=== PATIENT | female | born 1945 | race Caucasian/White ===

== ENCOUNTER 2024-08-21 12:48 | Inpatient (IN) | payer MEDICARE, OTHER ==
[2024-08-21] MEDS ORDERED: VANCOMYCIN IV PER PHARMACY 1 EACH MISC MISCELLANE PRN (12:57)
[2024-08-21 13:00] LABS: Glucose,Whole Blood 200 mg/dL (70-110)
[2024-08-21 13:14] LABS: Basophils # (A) 0.03 10*3/uL (0.00-0.10); Basophils % (A) 0.2 %; Eosinophils # (A) 0.09 10*3/uL (0.04-0.35); Eosinophils % (A) 0.5 %; HCT 31.9 % (37.2-46.3); HGB 10.2 g/dL (12.0-15.0); Lymphocytes # (A) 0.54 10*3/uL (0.90-5.00); Lymphocytes % (A) 3.1 %; MCH 25.5 pg (27.0-32.0); MCV 79.8 fL (80.0-97.0); Mean Platelet Volume 9.9 fL (9.5-12.2); Monocytes # (A) 1.41 10*3/uL (0.20-1.00); Neutrophils # (A) 15.41 10*3/uL (1.80-7.70); Neutrophils % (A) 87.3 %; Platelet Count 186 10*3/uL (140-440); RDW 17.7 % (11.5-14.5); WBC 17.64 10*3/uL (4.50-10.00)
--- NOTE | 2024-08-21 13:21 | ED ---
General Adult HPI - General Chief complaint: Altered Mental Status Stated complaint: AMS Time Seen by Provider: 08/21/24 12:49 Source: patient, EMS, RN notes reviewed, old records reviewed Mode of arrival: EMS Limitations: no limitations - History of Present Illness Initial comments: Patient is a 79-year-old female presents emergency department for altered mental status and increased weakness. She is usually ANO x 4 and takes care of herself and lives on her own. Family found her today still in bed. She seems slightly lethargic. Patient is not confused but is slow to answer questions. States she has been having a cough. Denies any abdominal pain, nausea, vomiting. Does endorse weakness. Denies any diarrhea. Denies any chest pain. Denies any headache. Is moving all 4 extremities. Presents for further evaluation at this time. Denies any falls or head injuries.Patient informs me she does have a history of COPD. - Related Data Home Medications Medication Instructions Recorded Confirmed Abatacept [Orencia Clickject] 125 mg SQ GILMORE 08/21/24 08/21/24 Donepezil [Aricept] 10 mg PO HS 08/21/24 08/21/24 Empagliflozin [Jardiance] 10 mg PO DIRECTED 08/21/24 08/21/24 Enalapril [Vasotec] 2.5 mg PO DAILY 08/21/24 08/21/24 Lacosamide 100 mg PO BID 08/21/24 08/21/24 Levothyroxine Sodium [Synthroid] 100 mcg PO DAILY 08/21/24 08/21/24 Omeprazole 20 mg PO BID 08/21/24 08/21/24 Pravastatin Sodium [Pravachol] 40 mg PO HS 08/21/24 08/21/24 Sertraline [Zoloft] 50 mg PO DAILY 08/21/24 08/21/24 metFORMIN HCL ER [Glucophage XR] 500 mg PO DIRECTED 08/21/24 08/21/24 predniSONE 5 mg PO DAILY 08/21/24 08/21/24 sitaGLIPtin [Januvia] 100 mg PO DAILY 08/21/24 08/21/24 Allergies Allergy/AdvReac Type Severity Reaction Status Date / Time No Known Allergies Allergy Verified 08/21/24 14:07 Review of Systems ROS Statement: Those systems with pertinent positive or pertinent negative responses have been documented in the HPI. Review of Systems: CONST: Endorses fever EYES: Denies blurry vision ENT: Denies nasal congestion C/V: Denies Chest pain RESP: Endorses cough, congestion GI: Denies abdominal pain : Denies dysuria SKIN: Denies rash. MSK: Denies joint pain. NEURO: Endorses general weakness ROS Other: All systems not noted in ROS Statement are negative. Past Medical History Past Medical History: No Reported History Past Surgical History: No Surgical Hx Reported General Exam - General Exam Comments Initial Comments: General: Febrile. HEAD: Normal with no signs of head trauma. EYES: PERRLA, EOMI, conjunctiva normal, no discharge. Pupils are 3 mm and equal bilaterally. ENT: Hearing grossly intact, normal oropharynx. Dry mucous membranes. RESPIRATORY: Coarse breath sounds with wheezing bilaterally. C/V: Tachycardic with regular rhythm. S1 and S2 auscultated, no edema, periphera l pulses 2+ and intact throughout ABD: Abd is soft, nontender, nondistended EXT: Normal range of motion, no obvious deformity SKIN: No rashes or lesions observed on exposed skin. NEURO: Alert and oriented x 4. No focal sensory or strength deficits. GCS 15. Somewhat slow to respond to questions. Has generalized weakness. Limitations: no limitations Course Vital Signs 08/21/24 08/21/24 08/21/24 12:50 15:27 15:36 Temperature 101 F H Pulse Rate 100 96 92 Pulse Rate [ Pulse Oximetery ] Respiratory 17 Rate Blood Pressure 139/55 Blood Pressure [Right Arm] O2 Sat by Pulse 95 Oximetry 08/21/24 08/21/24 08/21/24 15:56 16:06 18:08 Temperature 98.2 F 97.6 F Pulse Rate 98 Pulse Rate [ 102 H Pulse Oximetery ] Respiratory 17 16 Rate Blood Pressure 127/55 Blood Pressure 105/63 [Right Arm] O2 Sat by Pulse 96 96 Oximetry Medical Decision Making - Medical Decision Making Was pt. sent in by a medical professional or institution (STEVE Wong, BABY COUNSELOR, urgent care, hospital, or fdc...) When possible be specific @ -No Did you speak to anyone other than the patient for history (EMS, parent, family, police, friend...)? What history was obtained from this source @ -No Did you review nursing and triage notes (agree or disagree)? Why? @ -I reviewed and agree with nursing and triage notes Were old charts reviewed (outside hosp., previous admission, EMS record, old EKG, old radiological studies, urgent care reports/EKG's, fdc records)? Report findings @ -No old charts were reviewed Differential Diagnosis (chest pain, altered mental status, abdominal pain women, abdominal pain men, vaginal bleeding, weakness, fever, dyspnea, syncope, headache, dizziness, GI bleed, back pain, seizure, CVA, palpatations, mental health, musculoskeletal)? @ -Differential Weakness: Hypoglycemia, shock, sepsis, hyponatremia, anemia, infection, AR, ETOH, adverse medicine reaction, overdose, stroke, this is not meant to be an all-inclusive list. EKG interpreted by me (3pts min.). @ -As above X-rays interpreted by me (1pt min.). @ -Chest x-ray shows bilateral pulmonary infiltrates suggestive of pneumonia. CT interpreted by me (1pt min.). @ -CT brain shows no obvious acute intracranial process. U/S interpreted by me (1pt. min.). @ -None done What testing was considered but not performed or refused? (CT, X-rays, U/S, labs)? Why? @ -None What meds were considered but not given or refused? Why? @ -None Did you discuss the management of the patient with other professionals (professionals i.e. , PA, BABY COUNSELOR, lab, RT, psych nurse, social work case manager, scalp treatment specialist, teacher, chief technical officer, spring encaser)? Give summary @ -Discussed with admitting provider, Dr. Sadler who accepted the admission. Was smoking cessation discussed for >3mins.? @ -No Was critical care preformed (if so, how long)? @ -Yes, 32 minutes Were there social determinants of health that impacted care today? How? (Homelessness, low income, unemployed, alcoholism, drug addiction, transportation, low edu. Level, literacy, decrease access to med. care, long term, rehab)? @ -No Was there de-escalation of care discussed even if they declined (Discuss DNR or withdrawal of care, Hospice)? DNR status @ -No What co-morbidities impacted this encounter? (DM, HTN, Smoking, COPD, CAD, Cancer, CVA, ARF, Chemo, Hep., AIDS, mental health diagnosis, sleep apnea, morbid obesity)? @ -COPD Was patient admitted / discharged? Hospital course, mention meds given and route, prescriptions, significant lab abnormalities, going to OR and other pertinent info. @ -Patient presents febrile, with mild confusion as well as tachycardia. With mental status effects as well as the tachycardia and fever patient does meet criteria for sepsis. Multiple SIRS criteria with mental status changes. Patient will be initiated on 30 cc/kg fluid bolus of lactated Ringer's with maintenance fluids. Blood culture obtained and sent. Broad-spectrum vancomycin and cefepime started. Patient administered acetaminophen for her fever. She also given a dose of steroid and breathing treatment as I do suspect the source to be upper respiratory at this time concerning her breath sounds and cough. She was in agreement this plan. We will obtain workup in addition to CT brain as she is slow to respond to questions.Vital signs otherwise are within acceptable limits other than her fever and tachycardia. EKG shows no signs of acute ischemia.Imaging returned remarkable for pneumonia. CT brain shows no obvious acute process but old remote infarct. Labs remarkable for leukocytosis of 17, mild anemia with a hemoglobin of 10, LYNDON with a BUN of 55 and creatinine of 1.69, normal lactic acid. Urinalysis is still pending at time of admission. Viral swabs are negative. At this time, I updated the patient and family. Vital signs remained within acceptable limits. She will be admitted to the hospital. They were in agreement this plan. Diagnosis is pneumonia, sepsis, LYNDON, weakness. Spoke with the admitting provider, Dr. Sadler of [facility] who accepted the admission. Urinalysis returned after patient was admitted and was remarkable for UTI. Urine culture was sent. Undiagnosed new problem with uncertain prognosis? @ -No Drug Therapy requiring intensive monitoring for toxicity (Heparin, Nitro, Insulin, Cardizem)? @ -No Were any procedures done? @ -No Diagnosis/symptom? @ -Sepsis secondary to pneumonia and uti, weakness, COPD Acute, or Chronic, or Acute on Chronic? @ -Acute Uncomplicated (without systemic symptoms) or Complicated (systemic symptoms)? @ -Complicated Side effects of treatment? @ -None Exacerbation, Progression, or Severe Exacerbation] @ -No Poses a threat to life or bodily function? @ -Yes - Lab Data Result diagrams: 08/21/24 13:01 08/21/24 13:01 Lab Results 0508/21/24 08/21/24 Range/Units 12:55 13:01 13:01 WBC 17.64 H (4.50-10.00) 10*3/uL RBC 4.00 L (4.10-5.20) 10*6/uL Hgb 10.2 L (12.0-15.0) g/dL Hct 31.9 L (37.2-46.3) % MCV 79.8 L (80.0-97.0) fL MCH 25.5 L (27.0-32.0) pg MCHC 32.0 (32.0-37.0) g/dL Plt Count 186 (140-440) 10*3/uL MPV 9.9 (9.5-12.2) fL Immature Gran % (Auto) 0.9 % Neutrophils % 87.3 % Lymphocytes % 3.1 % Monocytes % 8.0 % Eosinophils % 0.5 % Basophils % 0.2 % Immature Gran # 0.16 H (0.00-0.04) 10*3/uL Neutrophils # 15.41 H (1.80-7.70) 10*3/uL Lymphocytes # 0.54 L (0.90-5.00) 10*3/uL Monocytes # 1.41 H (0.20-1.00) 10*3/uL Eosinophils # 0.09 (0.04-0.35) 10*3/uL Basophils # 0.03 (0.00-0.10) 10*3/uL PT 10.9 (10.0-12.5) sec INR 1.0 (<1.2) APTT 23.2 (22.0-30.0) sec Sodium (137-145) mmol/L Potassium (3.5-5.1) mmol/L Chloride (98-107) mmol/L Carbon Dioxide (22-30) mmol/L Anion Gap mmol/L BUN (7-17) mg/dL Creatinine (0.52-1.04) mg/dL Est GFR (CKD-EPI)AfAm (>60 ml/min/1.73 sqM) Est GFR (CKD-EPI)NonAf (>60 ml/min/1.73 sqM) Glucose (74-99) mg/dL POC Glucose (mg/dL) 200 H (70-110) mg/dL POC Glu Internet Sourcer ID Jenny Engel Plasma Lactic Acid Chip (0.7-2.0) mmol/L Calcium (8.4-10.2) mg/dL Magnesium (1.6-2.3) mg/dL Total Bilirubin (0.2-1.3) mg/dL AST (14-36) U/L ALT (4-34) U/L Alkaline Phosphatase (38-126) U/L Ammonia (<30) umol/L Total Protein (6.3-8.2) g/dL Albumin (3.5-5.0) g/dL Influenza Type A (PCR) (Not Detectd) Influenza Type B (PCR) (Not Detectd) RSV (PCR) (Not Detectd) SARS-CoV-2 (PCR) (Not Detectd) 08/21/24 08/21/24 08/21/24 Range/Units 13:01 13:01 13:40 WBC (4.50-10.00) 10*3/uL RBC (4.10-5.20) 10*6/uL Hgb (12.0-15.0) g/dL Hct (37.2-46.3) % MCV (80.0-97.0) fL MCH (27.0-32.0) pg MCHC (32.0-37.0) g/dL Plt Count (140-440) 10*3/uL MPV (9.5-12.2) fL Immature Gran % (Auto) % Neutrophils % % Lymphocytes % % Monocytes % % Eosinophils % % Basophils % % Immature Gran # (0.00-0.04) 10*3/uL Neutrophils # (1.80-7.70) 10*3/uL Lymphocytes # (0.90-5.00) 10*3/uL Monocytes # (0.20-1.00) 10*3/uL Eosinophils # (0.04-0.35) 10*3/uL Basophils # (0.00-0.10) 10*3/uL PT (10.0-12.5) sec INR (<1.2) APTT (22.0-30.0) sec Sodium 132 L (137-145) mmol/L Potassium 4.7 (3.5-5.1) mmol/L Chloride 101 (98-107) mmol/L Carbon Dioxide 19 L (22-30) mmol/L Anion Gap 12 mmol/L BUN 55 H (7-17) mg/dL Creatinine 1.69 H (0.52-1.04) mg/dL Est GFR (CKD-EPI)AfAm 33 (>60 ml/min/1.73 sqM) Est GFR (CKD-EPI)NonAf 29 (>60 ml/min/1.73 sqM) Glucose 199 H (74-99) mg/dL POC Glucose (mg/dL) (70-110) mg/dL POC Glu Internet Sourcer ID Plasma Lactic Acid Chip 1.0 (0.7-2.0) mmol/L Calcium 9.3 (8.4-10.2) mg/dL Magnesium 1.6 (1.6-2.3) mg/dL Total Bilirubin 0.7 (0.2-1.3) mg/dL AST 18 (14-36) U/L ALT 12 (4-34) U/L Alkaline Phosphatase 61 (38-126) U/L Ammonia (<30) umol/L Total Protein 6.7 (6.3-8.2) g/dL Albumin 3.8 (3.5-5.0) g/dL Influenza Type A (PCR) Not Detected (Not Detectd) Influenza Type B (PCR) Not Detected (Not Detectd) RSV (PCR) Not Detected (Not Detectd) SARS-CoV-2 (PCR) Not Detected (Not Detectd) 08/21/24 Range/Units 13:59 WBC (4.50-10.00) 10*3/uL RBC (4.10-5.20) 10*6/uL Hgb (12.0-15.0) g/dL Hct (37.2-46.3) % MCV (80.0-97.0) fL MCH (27.0-32.0) pg MCHC (32.0-37.0) g/dL Plt Count (140-440) 10*3/uL MPV (9.5-12.2) fL Immature Gran % (Auto) % Neutrophils % % Lymphocytes % % Monocytes % % Eosinophils % % Basophils % % Immature Gran # (0.00-0.04) 10*3/uL Neutrophils # (1.80-7.70) 10*3/uL Lymphocytes # (0.90-5.00) 10*3/uL Monocytes # (0.20-1.00) 10*3/uL Eosinophils # (0.04-0.35) 10*3/uL Basophils # (0.00-0.10) 10*3/uL PT (10.0-12.5) sec INR (<1.2) APTT (22.0-30.0) sec Sodium (137-145) mmol/L Potassium (3.5-5.1) mmol/L Chloride (98-107) mmol/L Carbon Dioxide (22-30) mmol/L Anion Gap mmol/L BUN (7-17) mg/dL Creatinine (0.52-1.04) mg/dL Est GFR (CKD-EPI)AfAm (>60 ml/min/1.73 sqM) Est GFR (CKD-EPI)NonAf (>60 ml/min/1.73 sqM) Glucose (74-99) mg/dL POC Glucose (mg/dL) (70-110) mg/dL POC Glu Internet Sourcer ID Plasma Lactic Acid Chip (0.7-2.0) mmol/L Calcium (8.4-10.2) mg/dL Magnesium (1.6-2.3) mg/dL Total Bilirubin (0.2-1.3) mg/dL AST (14-36) U/L ALT (4-34) U/L Alkaline Phosphatase (38-126) U/L Ammonia <9 (<30) umol/L Total Protein (6.3-8.2) g/dL Albumin (3.5-5.0) g/dL Influenza Type A (PCR) (Not Detectd) Influenza Type B (PCR) (Not Detectd) RSV (PCR) (Not Detectd) SARS-CoV-2 (PCR) (Not Detectd) - EKG Data -: EKG Interpreted by Me EKG Comments: 12-lead Electrocardiogram Interpretation Note EKG was reviewed and interpreted by myself. 12-lead ECG performed at 1303 is interpreted by me as revealing sinus tachycardia at a rate of 100 beats per minute. Loiza is normal. AK interval is 132 ms, QRS durations 83 ms, QTc is 364 ms.. There were no ST or T wave abnormalities to suggest myocardial ischemia or injury. R wave progression across the precordium was satisfactory. By my interpretation this EKG is non-diagnostic for acute ischemia. Critical Care Time Critical Care Time: Yes Total Critical Care Time: 32 Disposition Clinical Impression: Sepsis, Pneumonia, LYNDON (acute kidney injury), UTI (urinary tract infection) Disposition: ADMITTED IP TO THIS HOSP Condition: Serious Time of Disposition: 15:10
[2024-08-21 13:26] LABS: Partial Thromboplastin Time 23.2 sec (22.0-30.0); Prothrombin Time 10.9 sec (10.0-12.5)
[2024-08-21] MEDS: LACTATED RINGERS 1,000 ML IV SCH ×2 (13:30→16:20)
[2024-08-21] MEDS: ONDANSETRON 4 MG/2 ML VIAL IVP STA (13:31)
[2024-08-21 13:33] LABS: ALT 12 U/L (4-34); AST 18 U/L (14-36); African American GFR (CKD) 33 (>60 ml/min/1.73 sqM); Albumin 3.8 g/dL (3.5-5.0); Alkaline Phosphatase 61 U/L (38-126); Anion Gap 12 mmol/L; Blood Urea Nitrogen 55 mg/dL (7-17); Calcium 9.3 mg/dL (8.4-10.2); Carbon Dioxide 19 mmol/L (22-30); Chloride 101 mmol/L (98-107); Glucose 199 mg/dL (74-99); Magnesium 1.6 mg/dL (1.6-2.3); Non-African American GFR(CKD) 29 (>60 ml/min/1.73 sqM); Potassium 4.7 mmol/L (3.5-5.1); Sodium 132 mmol/L (137-145); Total Bilirubin 0.7 mg/dL (0.2-1.3); Total Protein 6.7 g/dL (6.3-8.2)
[2024-08-21] MEDS: methylPREDNISolone SOD SUCCI 125 MG/2 ML VIAL IV STA (13:33)
[2024-08-21] MEDS: ACETAMINOPHEN TAB 500 MG TAB PO STA (13:35)
[2024-08-21] MEDS: VANCOMYCIN 1,250 MG in SODIUM CHLORIDE 0.9% 250 ML IVPB STA (14:05)
[2024-08-21] MEDS: CEFEPIME 2 GM in SODIUM CHLORIDE 0.9% 100 ML IVPB STA (14:08)
[2024-08-21 14:22] LABS: Influenza A Not Detected (Not Detectd); Influenza B Not Detected (Not Detectd); RSV Not Detected (Not Detectd)
--- NOTE | 2024-08-21 15:06 | CT ---
EXAMINATION TYPE: CT brain wo con DATE OF EXAM: 08/21/2024 2:49 PM COMPARISON: None. CLINICAL INDICATION: Female, 79 years old with history of weakness, AMS/Weakness TECHNIQUE: Brain: Axial CT images of the brain were obtained with coronal and sagittal reformats created and rev iewed. Contrast used: None. Oral contrast used: None. CT DLP: 1933.4 mGycm, Automated exposure control for dose reduction was used. FINDINGS: Brain: Extra-axial spaces: No abnormal extra-axial fluid collections. Ventricular system: Dilatation in proportion to cerebral atrophy. Cerebral parenchyma: Encephalomalacia of the left frontal lobe from prior injury. Cerebral atrophy. N o acute intraparenchymal hemorrhage or mass effect. The fields-white junction is well differentiated. Scattered hypoattenuating areas are seen within the white matter. Cerebellum: Unremarkable. Mass effect: No evidence of midline shift. Intracranial vasculature: unremarkable Soft tissues: Normal. Calvarium/osseous structures: No depressed skull fracture. Paranasal sinuses and mastoid air cells: Mild scattered paranasal sinus disease. Visualized orbits: Orbital contents are intact. IMPRESSION: 1. No acute intracranial process. 2. Remote left frontal lobe injury. [facility], , 08/21/2024 3:04 PM
--- NOTE | 2024-08-21 15:08 | XR ---
EXAMINATION TYPE: XR chest 2V DATE OF EXAM: 08/21/2024 2:37 PM COMPARISON: None CLINICAL INDICATION: Female, 79 years old with history of Weakness; TECHNIQUE: XR chest 2V Frontal and lateral views of the chest. FINDINGS: Lungs/Pleura: Bibasilar atelectasis. Airspace opacities also present over the spine on lateral view. No evidence for pneumothorax, pleural effusion. Pulmonary vascularity: Unremarkable. Heart/mediastinum: Cardiomediastinal silhouette is unremarkable. Musculoskeletal: No acute osseous pathology. IMPRESSION: Lower lobe airspace opacities correlate for pneumonia versus atelectasis. [facility], , 08/21/2024 3:06 PM
[2024-08-21] MEDS ORDERED: IPRATROPIUM-ALBUTEROL 3 ML NEB INHALATION PRN (15:11)
[2024-08-21] MEDS ORDERED: IBUPROFEN 400 MG TAB PO PRN (15:12)
[2024-08-21] MEDS ORDERED: NALOXONE 0.4 MG/ML 1 ML VIAL IV PRN (15:12)
[2024-08-21] MEDS ORDERED: ONDANSETRON 4 MG/2 ML VIAL IVP PRN (15:12)
[2024-08-21] MEDS: IPRATROPIUM-ALBUTEROL 3 ML NEB INHALATION STA (15:26)
[2024-08-21] MEDS: IPRATROPIUM-ALBUTEROL 3 ML NEB INHALATION SCH (15:27)
[2024-08-21 15:49] LABS: Appearance,Urine Cloudy (Clear); Bacteria,Urine Occasional /hpf; Bilirubin,Urine Negative (Negative); Blood,Urine Moderate (Negative); Color,Urine Light Yellow; Glucose,Urine (UA) 4+ (Negative); Hyaline Casts,Urine 6 /lpf (0-2); Ketones,Urine Negative (Negative); Leukocyte Esterase,Urine Large (Negative); Mucus,Urine Rare /hpf; Nitrite,Urine Positive (Negative); PH, Urine 5.5 (5.0-8.0); Protein,Urine 1+ (Negative); RBC,Urine >182 /hpf (0-5); Specific Gravity,Urine 1.015 (1.001-1.035); Squamous Epithelial Cell,Urine 3 /hpf (0-4); Urobilinogen,Urine <2.0 mg/dL (<2.0); WBC,Urine >182 /hpf (0-5)
--- NOTE | 2024-08-21 16:08 | P.HPIM ---
History of Present Illness H&P Date: 08/21/24 Patient is a 79-year-old female with past medical history of COPD not on home oxygen, hypertension, CVA 2014 presenting with aphasia, no residual deficits, RA, hyperlipidemia, depression, type II DM, who presented to the ER on 08/21/2024 with altered mental status, increasing weakness. History obtained from patient's son. Patient lives on her own, she does not drive since 2016, she does not cook except for very light meals like sandwiches, heating meals. Her sons are doing grocery shopping with her/for her. She became less independent within the past 6 months. Usually ANO x 4. Her son noted that from 3 days ago she became more fatigued, spent more time in the bed. Also became more lethargic. Noted some cough. Patient herself only mentioned that she has been having fatigue but no other symptoms including shortness of breath, chest pain, fevers, chills, nausea, vomiting, dysuria, she states that she usually has 2 or 3 soft bowel movements a day. Per son, patient does not go out, On arrival febrile 101F, tachycardic 100, BP 139/55, [id number] on room air. Lab work revealed leukocytosis 17.6, hemoglobin 10.2, down from 11.4 in May, platelet count normal, coagulation panel normal, sodium low 132, potassium and chloride normal, bicarb 19, creatinine increased 1.69, up from 1.2 in May, blood glucose elevated 199, lactic acid normal, magnesium 1.6, AST and ALT jessica l, ammonia less than 9, Cepheid panel negative, UA significant for glucosuria, pyuria, hematuria, large leukocyte esterase. EKG showed sinus tachycardia, nonspecific ST and T wave abnormalities, QTc 368, no acute ischemia. CT head showed no acute intracranial process remote left frontal lobe injury. Chest x-ray showed lower lobe opacities bilaterally. Patient received cefepime and vancomycin in the ER, admitted for further management of sepsis, secondary to UTI, urine and blood cultures sent, switch to ceftriaxone 2 g daily as well as azithromycin to cover UTI and possible Pertinent positives and negatives as discussed in HPI, a complete review of systems was performed and all other systems are negative. Patient seen and examined at bedside. Vital signs reviewed General: nontoxic, no distress, appears at stated age Derm: warm, dry Head: atraumatic, normocephalic, symmetric Eyes: EOMI, no lid lag, anicteric sclera, pupils equal round reactive to light ENT: Nose and ears atraumatic Neck: No thyromegaly, supple Mouth: no lip lesion, mucus membranes moist Cardiovascular: S1S2 reg, no murmur, no edema Lungs: Bibasilar rhonchi,, no wheezing Abdominal: soft, nontender to palpation, no guarding, no appreciable organomegaly Ext: no gross muscle atrophy, muscle strength muscle strength 5 out of 5 in all 4 extremities, no contractures Neuro: CN II-XII grossly intact Psych: Alert, oriented, appropriate affect Assessment/Plan: Sepsis without septic shock, secondary to UTI and possible Acute toxic metabolic encephalopathy secondary to above - Will switch to ceftriaxone 2 g every 24 hours -Continue with LR at 130 cc/h -Follow-up on urine and blood cultures - Check TSH, vitamin B12, B9, vitamin D3 - PT OT Prerenal LYNDON Hyponatremia -Corrected sodium 134 -Received fluid boluses per sepsis protocol -Continue with LR at 130 cc/h -Strict I's and O's, kidney -Hold home enalapril 2.5 mg p.o. daily Type II DM not on insulin -Hold home Jardiance 10 mg, metformin 500 daily, sitagliptin 100 mg daily -Continue with SSI, Accu-Cheks, hypoglycemia precautions Hypothyroidism: Continue home levothyroxine 100 mg p.o. daily Hyperlipidemia Hypertension Depression RA - Hold home enalapril 2.5 mg p.o. daily, continue sertraline 50 mg p.o. daily, donepezil 10 mg p.o. daily, -Continue home prednisone 5 mg daily The patient is admitted with an anticipated greater than 2 midnight stay as inpatient status for evaluation of sepsis. CODE STATUS: DNR/DNI DVT prophylaxis: Heparin Anticipated discharge date: TBD Anticipated discharge place: [facility] A total of40] minutes was spent on the care of this complex patient more than 50% of the time was spent in counseling and care coordination. Past Medical History Past Medical History: No Reported History Past Surgical History: No Surgical Hx Reported Medications and Allergies Home Medications Medication Instructions Recorded Confirmed Type Abatacept [Orencia Clickject] 125 mg SQ GILMORE 08/21/24 08/21/24 History Donepezil [Aricept] 10 mg PO HS 08/21/24 08/21/24 History Empagliflozin [Jardiance] 10 mg PO DIRECTED 08/21/24 08/21/24 History Enalapril [Vasotec] 2.5 mg PO DAILY 08/21/24 08/21/24 History Lacosamide 100 mg PO BID 08/21/24 08/21/24 History Levothyroxine Sodium [Synthroid] 100 mcg PO DAILY 08/21/24 08/21/24 History Omeprazole 20 mg PO BID 08/21/24 08/21/24 History Pravastatin Sodium [Pravachol] 40 mg PO HS 08/21/24 08/21/24 History Sertraline [Zoloft] 50 mg PO DAILY 08/21/24 08/21/24 History metFORMIN HCL ER [Glucophage XR] 500 mg PO DIRECTED 08/21/24 08/21/24 History predniSONE 5 mg PO DAILY 08/21/24 08/21/24 History sitaGLIPtin [Januvia] 100 mg PO DAILY 08/21/24 08/21/24 History Allergies Allergy/AdvReac Type Severity Reaction Status Date / Time No Known Allergies Allergy Verified 08/21/24 14:07 Physical Exam Vitals: Vital Signs Temp Pulse Resp BP Pulse Ox 08/21/24 15:27 96 08/21/24 12:50 101 F H 100 17 139/55 95 Intake and Output 08/21/24 08/21/24 08/21/24 06:59 14:59 22:59 Other: Weight 70.6 kg Results CBC & Chem 7: 08/21/24 13:01 08/21/24 13:01 Labs: Abnormal Lab Results - Last 24 Hours (Table) 08/21/24 08/21/24 08/21/24 Range/Units 12:55 13:01 13:01 WBC 17.64 H (4.50-10.00) 10*3/uL RBC 4.00 L (4.10-5.20) 10*6/uL Hgb 10.2 L (12.0-15.0) g/dL Hct 31.9 L (37.2-46.3) % MCV 79.8 L (80.0-97.0) fL MCH 25.5 L (27.0-32.0) pg Immature Gran # 0.16 H (0.00-0.04) 10*3/uL Neutrophils # 15.41 H (1.80-7.70) 10*3/uL Lymphocytes # 0.54 L (0.90-5.00) 10*3/uL Monocytes # 1.41 H (0.20-1.00) 10*3/uL Sodium 132 L (137-145) mmol/L Carbon Dioxide 19 L (22-30) mmol/L BUN 55 H (7-17) mg/dL Creatinine 1.69 H (0.52-1.04) mg/dL Glucose 199 H (74-99) mg/dL POC Glucose (mg/dL) 200 H (70-110) mg/dL
[2024-08-21] MEDS: AZITHROMYCIN 500 MG in SODIUM CHLORIDE 0.9% 250 ML IVPB SCH (16:20)
--- NOTE | 2024-08-21 18:10 | US ---
EXAMINATION TYPE: US kidneys/renal and bladder DATE OF EXAM: 08/21/2024 COMPARISON: NONE CLINICAL INDICATION: Female, 79 years old with history of LYNDON; HX uti. Abnormal labs TECHNIQUE: Grayscale imaging of the bilateral kidneys and urinary bladder: FINDINGS: EXAM MEASUREMENTS: Right Kidney: 10.5 x 4.5 x 4.7 cm Left Kidney: 10.5 x 4.3 x 4.9 cm Right Kidney: No hydronephrosis or masses seen Left Kidney: No hydronephrosis or masses seen Bladder: anechoic, limited visualized due to patient voiding before exam, incompletely distended Bilateral Jets not seen There is no evidence for hydronephrosis at this point in time. No nephrolithiasis is seen. No mikhail s are identified. The urinary bladder is anechoic. IMPRESSION: 1. No evidence for obstructive uropathy. No renal calculi definitively visualized. 2. Incompletely distended urinary bladder [facility], , 08/21/2024 6:08 PM
[2024-08-21] MEDS: PRAVASTATIN SODIUM 40 MG TAB PO SCH (20:29)
[2024-08-21] MEDS: HEPARIN SODIUM,PORCINE 5,000 UNIT/ML 1 ML VIAL SQ SCH (20:29)
[2024-08-21] MEDS: DONEPEZIL 10 MG TAB PO SCH (20:30)
[2024-08-21] MEDS: LACOSAMIDE 50 MG TABLET PO SCH (20:30)
[2024-08-21] MEDS ORDERED: methylPREDNISolone SOD SUCCI 40 MG/ML 1 ML VIAL IV SCH (21:00)
[2024-08-21] MEDS ORDERED: CEFEPIME 2 GM in SODIUM CHLORIDE 0.9% 100 ML IVPB SCH (21:00)
[2024-08-22] MEDS: LEVOTHYROXINE 100 MCG TAB PO SCH (06:46)
[2024-08-22] MEDS: PANTOPRAZOLE 40 MG TABLET PO SCH (06:46)
[2024-08-22 07:41] LABS: ALT 15 U/L (4-34); AST 17 U/L (14-36); African American GFR (CKD) 63 (>60 ml/min/1.73 sqM); Albumin 3.4 g/dL (3.5-5.0); Albumin/Globulin Ratio 1.2; Alkaline Phosphatase 58 U/L (38-126); Anion Gap 12 mmol/L; Blood Urea Nitrogen 40 mg/dL (7-17); Calcium 9.6 mg/dL (8.4-10.2); Carbon Dioxide 20 mmol/L (22-30); Chloride 106 mmol/L (98-107); Globulin 2.8 g/dL; Glucose 203 mg/dL (74-99); Non-African American GFR(CKD) 54 (>60 ml/min/1.73 sqM); Potassium 4.3 mmol/L (3.5-5.1); Sodium 138 mmol/L (137-145); Total Bilirubin 0.4 mg/dL (0.2-1.3); Total Protein 6.2 g/dL (6.3-8.2)
[2024-08-22] MEDS ORDERED: ENOXAPARIN 30 MG/0.3 ML SYRINGE SQ SCH (09:00)
[2024-08-22] MEDS: predniSONE 5 MG TAB PO SCH (09:11)
[2024-08-22] MEDS ORDERED: DEXTROSE 50% SYRINGE 50 ML IVP PRN ×2 (11:09)
--- NOTE | 2024-08-22 11:12 | P.PN ---
Subjective Progress Note Date: 08/22/24 Hospital Course: Patient is a 79-year-old female with past medical history of COPD not on home oxygen, hypertension, CVA 2014 presenting with aphasia, no residual deficits, RA, hyperlipidemia, depression, type II DM, who presented to the ER on 08/21/2024 with altered mental status, increasing weakness. History obtained from patient's son. Patient lives on her own, she does not drive since 2016, she does not cook except for very light meals like sandwiches, heating meals. Her sons are doing grocery shopping with her/for her. She became less independent within the past 6 months. Usually ANO x 4. Her son noted that from 3 days ago she became more fatigued, spent more time in the bed. Also became more lethargic. Noted some cough. Patient herself only mentioned that she has been having fatigue but no other symptoms including shortness of breath, chest pain, fevers, chills, nausea, vomiting, dysuria, she states that she usually has 2 or 3 soft bowel movements a day. Per son, patient does not go out, ordered vitamin D3 check On arrival febrile 101F, tachycardic 100, BP 139/55, [id number] on room air. Lab work revealed leukocytosis 17.6, hemoglobin 10.2, down from 11.4 in May, p latelet count normal, coagulation panel normal, sodium low 132, potassium and chloride normal, bicarb 19, creatinine increased 1.69, up from 1.2 in May, blood glucose elevated 199, lactic acid normal, magnesium 1.6, AST and ALT normal, ammonia less than 9, Cepheid panel negative, UA significant for glucosuria, pyuria, hematuria, large leukocyte esterase. EKG showed sinus tachycardia, nonspecific ST and T wave abnormalities, QTc 368, no acute ischemia. CT head showed no acute intracranial process remote left frontal lobe injury. Chest x-ray showed lower lobe opacities bilaterally. Patient received cefepime and vancomycin in the ER, admitted for further management of sepsis, secondary to UTI, urine and blood cultures sent, switch to ceftriaxone 2 g daily as well as azithromycin to cover UTI and possible CAP 08/22: Seen and examined at bedside, she was sitting at the edge of the bed, eat ing her breakfast, she feels significantly better today, continues to have cough, otherwise no complaints. She has been afebrile with stable blood pressure. Blood cultures growing E. coli. CBC pending, BMP with normalized sodium, creatinine, will continue with IV fluids at decreased rate of 50 cc/h for 1 more day. Pertinent positives and negatives as discussed above, a complete review of sys tems was performed and all other systems are negative. Vitals Signs Reviewed. General: [nontoxic], [no distress], [appears at stated age] Derm: [warm], [dry] Head: [atraumatic], [normocephalic], [symmetric] Eyes: [EOMI], [no lid lag], [anicteric sclera] Mouth: [no lip lesion], [mucus membranes moist] Cardiovascular: [S1S2 reg], [no murmur] Lungs: [CTA bilateral], mild bibasilar rhonchi more on the right] , [no accessory muscle use] Abdominal: [soft], [ nontender to palpation], [no guarding], [no appreciable organomegaly] Ext: [no gross muscle atrophy], [no edema], [no contractures] Neuro: [ CN II-XI grossly intact], [no focal neuro deficits] Psych: [Alert], [oriented], [appropriate affect] Assessment and Plan:Sepsis without septic shock, secondary to UTI and possible Acute toxic metabolic encephalopathy secondary to above - Will switch to ceftriaxone 2 g every 24 hours -Continue with LR at 130 cc/h -Follow-up on urine and blood cultures - Check TSH, vitamin B12, B9, vitamin D3-all pending this morning - PT OT Prerenal LYNDON, resolved Hyponatremia resolved -Received fluid boluses per sepsis protocol -Continue with LR at decreased rate of 50 cc/h -Strict I's and O's, kidney -Hold home enalapril 2.5 mg p.o. daily Type II DM not on insulin -Hold home Jardiance 10 mg, metformin 500 daily, sitagliptin 100 mg daily -Continue with SSI, Accu-Cheks, hypoglycemia precautions Hypothyroidism: Continue home levothyroxine 100 mg p.o. daily Hyperlipidemia Hypertension Depression RA - Hold home enalapril 2.5 mg p.o. daily, continue sertraline 50 mg p.o. daily, donepezil 10 mg p.o. daily, -Continue home prednisone 5 mg daily CODE STATUS: DNR/DNI DVT prophylaxis: Heparin Anticipated discharge date: TBD Anticipated discharge place: TBD Objective - Vital Signs Vital signs: Vital Signs Temp 97.4 F L 08/22/24 07:43 Pulse 80 08/22/24 08:57 Resp 17 08/22/24 07:43 BP 147/83 08/22/24 07:43 Pulse Ox 96 08/22/24 08:49 FiO2 Intake & Output 08/21/24 08/22/24 08/22/24 18:59 06:59 18:59 Output Total 800 Balance -800 Weight 70.6 kg Output: Urine 800 Other: Voiding Method Toilet # Voids 1 1 1 - Labs CBC & Chem 7: 08/21/24 13:01 08/22/24 07:03 Labs: Abnormal Lab Results - Last 24 Hours (Table) 08/21/24 08/21/24 08/21/24 Range/Units 12:55 13:01 13:01 WBC 17.64 H (4.50-10.00) 10*3/uL RBC 4.00 L (4.10-5.20) 10*6/uL Hgb 10.2 L (12.0-15.0) g/dL Hct 31.9 L (37.2-46.3) % MCV 79.8 L (80.0-97.0) fL MCH 25.5 L (27.0-32.0) pg Immature Gran # 0.16 H (0.00-0.04) 10*3/uL Neutrophils # 15.41 H (1.80-7.70) 10*3/uL Lymphocytes # 0.54 L (0.90-5.00) 10*3/uL Monocytes # 1.41 H (0.20-1.00) 10*3/uL Sodium 132 L (137-145) mmol/L Carbon Dioxide 19 L (22-30) mmol/L BUN 55 H (7-17) mg/dL Creatinine 1.69 H (0.52-1.04) mg/dL Glucose 199 H (74-99) mg/dL POC Glucose (mg/dL) 200 H (70-110) mg/dL Total Protein (6.3-8.2) g/dL Albumin (3.5-5.0) g/dL Urine Appearance (Clear) Urine Protein (Negative) Urine Glucose (UA) (Negative) Urine Blood (Negative) Urine Nitrite (Negative) Ur Leukocyte Esterase (Negative) Urine RBC (0-5) /hpf Urine WBC (0-5) /hpf Urine WBC Clumps (None) /hpf Urine Bacteria (None) /hpf Hyaline Casts (0-2) /lpf Urine Mucus (None) /hpf 08/21/24 08/22/24 Range/Units 15:30 07:03 WBC (4.50-10.00) 10*3/uL RBC (4.10-5.20) 10*6/uL Hgb (12.0-15.0) g/dL Hct (37.2-46.3) % MCV (80.0-97.0) fL MCH (27.0-32.0) pg Immature Gran # (0.00-0.04) 10*3/uL Neutrophils # (1.80-7.70) 10*3/uL Lymphocytes # (0.90-5.00) 10*3/uL Monocytes # (0.20-1.00) 10*3/uL Sodium (137-145) mmol/L Carbon Dioxide 20 L (22-30) mmol/L BUN 40 H (7-17) mg/dL Creatinine (0.52-1.04) mg/dL Glucose 203 H (74-99) mg/dL POC Glucose (mg/dL) (70-110) mg/dL Total Protein 6.2 L (6.3-8.2) g/dL Albumin 3.4 L (3.5-5.0) g/dL Urine Appearance Cloudy H (Clear) Urine Protein 1+ H (Negative) Urine Glucose (UA) 4+ H (Negative) Urine Blood Moderate H (Negative) Urine Nitrite Positive H (Negative) Ur Leukocyte Esterase Large H (Negative) Urine RBC >182 H (0-5) /hpf Urine WBC >182 H (0-5) /hpf Urine WBC Clumps Occasional H (None) /hpf Urine Bacteria Occasional H (None) /hpf Hyaline Casts 6 H (0-2) /lpf Urine Mucus Rare H (None) /hpf Microbiology - Last 24 Hours (Table) 08/21/24 13:59 Blood Culture Gram Stain - Preliminary Blood Blood Culture - Preliminary Molecular ID
[2024-08-22] MEDS ORDERED: VANCOMYCIN 1,250 MG in SODIUM CHLORIDE 0.9% 250 ML IVPB ONE (12:00)
[2024-08-22] MEDS: INSULIN LISPRO (HumaLOG) 100 UNIT/ML 10 mL VL SQ SCH (14:02)
[2024-08-22 15:57] LABS: Glucose,Whole Blood 282 mg/dL (70-110)
[2024-08-22 16:04] LABS: Basophils # (A) 0.03 X 10*3/uL (0.00-0.10); Basophils % (A) 0.2 %; Eosinophils # (A) 0 X 10*3/uL (0.04-0.35); Eosinophils % (A) 0 %; HCT 30.7 % (37.2-46.3); HGB 9.1 g/dL (12.0-15.0); Lymphocytes # (A) 0.39 X 10*3/uL (0.90-5.00); Lymphocytes % (A) 2.6 %; MCH 24.5 pg (27.0-32.0); MCHC 29.6 g/dL (32.0-37.0); MCV 82.7 FL (80.0-97.0); Mean Platelet Volume 10.8 FL (9.5-12.2); Monocytes # (A) 0.79 X 10*3/uL (0.20-1.00); Monocytes % (A) 5.3 %; NRBC Per 100 WBC 0 X 10*3/uL (0.00-0.01); Neutrophils # (A) 13.56 X 10*3/uL (1.80-7.70); Neutrophils % (A) 91.2 %; Platelet Count 191 X 10*3/uL (140-440); RBC 3.71 X 10*6/uL (4.10-5.20); RDW 17.7 % (11.5-14.5); WBC 14.87 X 10*3/uL (4.50-10.00)
[2024-08-22 20:22] LABS: Glucose,Whole Blood 217 mg/dL (70-110)
[2024-08-23] MEDS: MELATONIN 5 MG TABLET PO PRN (02:26)
[2024-08-23 03:57] LABS: Basophils # (A) 0.02 10*3/uL (0.00-0.10); Basophils % (A) 0.2 %; Eosinophils # (A) 0.13 10*3/uL (0.04-0.35); Eosinophils % (A) 1.4 %; HCT 28.9 % (37.2-46.3); HGB 9.3 g/dL (12.0-15.0); Lymphocytes # (A) 0.59 10*3/uL (0.90-5.00); Lymphocytes % (A) 6.4 %; MCH 25.6 pg (27.0-32.0); MCHC 32.2 g/dL (32.0-37.0); MCV 79.6 fL (80.0-97.0); Mean Platelet Volume 10.5 fL (9.5-12.2); Monocytes # (A) 0.72 10*3/uL (0.20-1.00); Monocytes % (A) 7.8 %; Neutrophils # (A) 7.69 10*3/uL (1.80-7.70); Neutrophils % (A) 83.3 %; Platelet Count 135 10*3/uL (140-440); RBC 3.63 10*6/uL (4.10-5.20); RDW 17.7 % (11.5-14.5); WBC 9.23 10*3/uL (4.50-10.00)
[2024-08-23 04:05] LABS: African American GFR (CKD) 69 (>60 ml/min/1.73 sqM); Anion Gap 3 mmol/L; Blood Urea Nitrogen 39 mg/dL (7-17); Calcium 9.2 mg/dL (8.4-10.2); Carbon Dioxide 22 mmol/L (22-30); Chloride 103 mmol/L (98-107); Glucose 118 mg/dL (74-99); Non-African American GFR(CKD) 60 (>60 ml/min/1.73 sqM); Potassium 4.2 mmol/L (3.5-5.1); Sodium 128 mmol/L (137-145)
[2024-08-23 06:12] LABS: Glucose,Whole Blood 145 mg/dL (70-110)
[2024-08-23] MEDS: IPRATROPIUM-ALBUTEROL 3 ML NEB INHALATION SCH (08:58)
[2024-08-23] MEDS: ACETAMINOPHEN TAB 325 MG TAB PO PRN (09:14)
[2024-08-23 11:09] LABS: Glucose,Whole Blood 277 mg/dL (70-110)
--- NOTE | 2024-08-23 16:46 | P.PN ---
Subjective Progress Note Date: 08/23/24 Patient was seen and examined. Feeling better. Son at bedside. CBC and BMP significant for RBC 3.63, Hg 9.3, Hct 28.9, MCV 79.6, Plt 135, Na 128, BUN 39, glu 118. BP 167/77, HR 102, Tmax 100F, RR 17, 97% on RA. General: no distress, appears at stated age Derm: warm, dry Head: atraumatic, normocephalic, symmetric Mouth: no lip lesion, mucus membranes moist Cardiovascular: S1 S2 tachy. No murmur. Lungs: Decreased BS bilaterally, no accessory muscle use Ext: no gross muscle atrophy, no edema, no contractures. Neuro: No focal neurologic deficits. Psych: Alert and oriented. Based on my assessment of this patient, this patient meets a high complexity level of care. Acute metabolic encephalopathy due to E. coli bacteremia from UTI: Rocephin 2g IV QD. Tylenol 650 mg PO Q6H PRN fever. Follow final BCx and sensitivities. Hyponatremia with LYNDON: Renal US no obstruction. Start NS at 75 cc/hr. DM with hyperglycemia: Hold home Jardiance, metformin, sitagliptin. Continue with SSI and Accu-Cheks ACHS along with hypoglycemia precautions. Microcytic anemia: Obtain iron studies. Transfuse if Hg< 7. Recommend outpatient C-scope. Hypothyroidism: Continue Synthroid 100 mcg PO QD. Hyperlipidemia: Pravastatin 40 mg PO QD. Hypertension: Start Amlodipine 10 mg PO QD. Depression: Sertraline 50 mg PO QD. Dementia: Aricept 10 mg PO QHS. RA: Prednisone 5 mg PO QD. CODE STATUS: FULL CODE DVT Prophylaxis: Heparin SQ GI Prophylaxis: Designated medical POA if patient is not able to make medical decisions for themselves: Son I have reviewed the following speech correction consultant notes: I have reviewed the results of the following tests: CBC, BMP. I have ordered the following tests: Iron studies. CBC and BMP in the AM. I have discussed the care of this patient with the following independent historian: Son. I have independently interpreted the following test below: I have discussed the management of this patient with the following physician: Objective - Vital Signs Vital signs: Vital Signs Temp 98.0 F 08/23/24 14:00 Pulse 102 H 08/23/24 14:00 Resp 17 08/23/24 14:00 BP 167/77 08/23/24 14:00 Pulse Ox 97 08/23/24 14:00 FiO2 Intake & Output 08/22/24 08/23/24 08/23/24 18:59 06:59 18:59 Other: Voiding Method Toilet Toilet # Voids 1 8 - Labs CBC & Chem 7: 08/23/24 03:20 08/23/24 03:20 Labs: Abnormal Lab Results - Last 24 Hours (Table) 08/22/24 08/22/24 08/23/24 Range/Units 07:03 20:21 03:20 RBC 3.63 L (4.10-5.20) 10*6/uL Hgb 9.3 L (12.0-15.0) g/dL Hct 28.9 L (37.2-46.3) % MCV 79.6 L (80.0-97.0) fL MCH 25.6 L (27.0-32.0) pg RDW 17.7 H (11.5-14.5) % Plt Count 135 L (140-440) 10*3/uL Immature Gran # 0.08 H (0.00-0.04) 10*3/uL Lymphocytes # 0.59 L (0.90-5.00) 10*3/uL Sodium (137-145) mmol/L BUN (7-17) mg/dL Glucose (74-99) mg/dL POC Glucose (mg/dL) 217 H (70-110) mg/dL Vitamin D 25-Hydroxy 28.8 L (30.0-100.0) ng/mL TSH 0.192 L (0.350-5.500) UIU/ML 08/23/24 08/23/24 08/23/24 Range/Units 03:20 06:10 11:07 RBC (4.10-5.20) 10*6/uL Hgb (12.0-15.0) g/dL Hct (37.2-46.3) % MCV (80.0-97.0) fL MCH (27.0-32.0) pg RDW (11.5-14.5) % Plt Count (140-440) 10*3/uL Immature Gran # (0.00-0.04) 10*3/uL Lymphocytes # (0.90-5.00) 10*3/uL Sodium 128 L (137-145) mmol/L BUN 39 H (7-17) mg/dL Glucose 118 H (74-99) mg/dL POC Glucose (mg/dL) 145 H 277 H (70-110) mg/dL Vitamin D 25-Hydroxy (30.0-100.0) ng/mL TSH (0.350-5.500) UIU/ML Microbiology - Last 24 Hours (Table) 08/21/24 13:59 Blood Culture Gram Stain - Preliminary Blood Blood Culture - Preliminary Escherichia coli Molecular ID 08/21/24 15:30 Urine Culture - Final Urine,Voided
[2024-08-23 17:11] LABS: Glucose,Whole Blood 160 mg/dL (70-110)
[2024-08-23] MEDS: amLODIPine 10 MG TAB PO SCH (18:11)
[2024-08-23] MEDS: SODIUM CHLORIDE 0.9% 1,000 ML IV SCH (18:12)
[2024-08-23 20:56] LABS: Glucose,Whole Blood 170 mg/dL (70-110)
[2024-08-23] MEDS ORDERED: MELATONIN 5 MG TABLET PO SCH (21:00)
[2024-08-24 04:10] LABS: HGB 7.9 g/dL (12.0-15.0); MCH 25.2 pg (27.0-32.0); MCHC 30.4 g/dL (32.0-37.0); MCV 83.1 fL (80.0-97.0); Mean Platelet Volume 10.5 fL (9.5-12.2); Platelet Count 130 10*3/uL (140-440); RBC 3.13 10*6/uL (4.10-5.20); RDW 17.6 % (11.5-14.5); WBC 6.27 10*3/uL (4.50-10.00)
[2024-08-24 04:14] LABS: African American GFR (CKD) >90 (>60 ml/min/1.73 sqM); Anion Gap 7 mmol/L; Blood Urea Nitrogen 14 mg/dL (7-17); Carbon Dioxide 19 mmol/L (22-30); Chloride 113 mmol/L (98-107); Glucose 103 mg/dL (74-99); Non-African American GFR(CKD) 89 (>60 ml/min/1.73 sqM); Potassium 2.8 mmol/L (3.5-5.1); Sodium 139 mmol/L (137-145)
[2024-08-24 04:22] LABS: Calcium 6.3 mg/dL (8.4-10.2)
[2024-08-24] MEDS: CALCIUM GLUCONATE IN NACL 2 GM in SALINE 1 100ML.BAG IVPB ONE (05:18)
[2024-08-24 05:59] LABS: Magnesium 1.2 mg/dL (1.6-2.3)
[2024-08-24 06:09] LABS: Glucose,Whole Blood 193 mg/dL (70-110)
[2024-08-24] MEDS: POTASSIUM CHLORIDE ER 20 MEQ TAB.ER PO SCH (06:23)
[2024-08-24] MEDS: MAGNESIUM SULFATE-D5W PMX 1 GM in DEXTROSE/WATER 1 100ML.BAG IVPB SCH (06:23)
[2024-08-24] MEDS: CALCIUM CARB-VIT D 500 MG-5 MCG TAB PO SCH (07:58)
[2024-08-24] MEDS: SERTRALINE 50 MG TAB PO SCH (08:13)
[2024-08-24 08:23] LABS: % Iron Saturation 3.21 (12.00-45.00)
[2024-08-24 10:44] LABS: Phosphorus 2.3 mg/dL (2.4-5.1)
--- NOTE | 2024-08-24 11:58 | P.PN ---
Subjective Progress Note Date: 08/24/24 Patient was seen and examined. Fatigue improving. No specific complaints. CBC and BMP significant for RBC 3.13, Hg 7.9, Hct 26, Plt 130, K 2.8, Cl 113, bicarb 19, glu 103, Ca 6.3. Mag 1.2. Phos 2.3. Iron studies Fe 8, % sat 3.21, ferritin 178. BP 147/71, HR 68, Tmax 100.4 F, RR 17, 96% on RA. General: no distress, appears at stated age Derm: warm, dry Head: atraumatic, normocephalic, symmetric Mouth: no lip lesion, mucus membranes moist Cardiovascular: S1 S2 tachy. No murmur. Lungs: Decreased BS bilaterally, no accessory muscle use Ext: no gross muscle atrophy, no edema, no contractures. Neuro: No focal neurologic deficits. Psych: Alert and oriented. Based on my assessment of this patient, this patient meets a high complexity level of care. Acute metabolic encephalopathy due to E. coli bacteremia from UTI: Rocephin 2g IV QD. Tylenol 650 mg PO Q6H PRN fever. Transition to Augmentin on discharge when afebrile for 24H. Hypokalemia: 80 meq KCl PO x 1 today. Hypocalcemia: 2g Ca gluconate x 1 today. Hypomagnesemia: 2g Mag sulfate x 1 today. DM with hyperglycemia: Hold home Jardiance, metformin, sitagliptin. Continue with SSI and Accu-Cheks ACHS along with hypoglycemia precautions. Microcytic anemia: Iron deficiency anemia. Start Ferrilict 125 mg IV daily. Transfuse if Hg< 7. Recommend outpatient C-scope. Hypothyroidism: Continue Synthroid 100 mcg PO QD. Hyperlipidemia: Pravastatin 40 mg PO QD. Hypertension: Start Amlodipine 10 mg PO QD. Depression: Sertraline 50 mg PO QD. Dementia: Aricept 10 mg PO QHS. RA: Prednisone 5 mg PO QD. CODE STATUS: FULL CODE DVT Prophylaxis: Heparin SQ GI Prophylaxis: Designated medical POA if patient is not able to make medical decisions for them selves: Son I have reviewed the following digital media sales consultant notes: I have reviewed the results of the following tests: CBC, BMP. Mag. Phos. Iron studies. I have ordered the following tests: Iron studies. CBC, Mag and BMP in the AM. I have discussed the care of this patient with the following independent istorian: Case management. I have independently interpreted the following test below: I have discussed the management of this patient with the following physician: Objective - Vital Signs Vital signs: Vital Signs Temp 99.7 F H 08/24/24 08:00 Pulse 68 08/24/24 08:00 Resp 17 08/24/24 08:00 BP 147/71 08/24/24 08:00 Pulse Ox 96 08/24/24 08:00 FiO2 Intake & Output 08/23/24 08/24/24 08/24/24 18:59 06:59 18:59 Other: Voiding Method Toilet Toilet # Voids 6 2 # Bowel Movements 2 1 - Labs CBC & Chem 7: 08/24/24 03:25 08/24/24 03:25 Labs: Abnormal Lab Results - Last 24 Hours (Table) 08/23/24 08/23/24 08/24/24 Range/Units 17:10 20:49 03:25 RBC 3.13 L (4.10-5.20) 10*6/uL Hgb 7.9 L (12.0-15.0) g/dL Hct 26.0 L (37.2-46.3) % MCH 25.2 L (27.0-32.0) pg MCHC 30.4 L (32.0-37.0) g/dL RDW 17.6 H (11.5-14.5) % Plt Count 130 L (140-440) 10*3/uL Potassium (3.5-5.1) mmol/L Chloride (98-107) mmol/L Carbon Dioxide (22-30) mmol/L Glucose (74-99) mg/dL POC Glucose (mg/dL) 160 H 170 H (70-110) mg/dL Calcium (8.4-10.2) mg/dL Phosphorus (2.4-5.1) mg/dL Magnesium (1.6-2.3) mg/dL Iron (50-170) UG/DL % Saturation (12.00-45.00) Transferrin (204.0-354.0) mg/dL Vitamin D 25-Hydroxy (30.0-100.0) ng/mL 08/24/24 08/24/24 08/24/24 Range/Units 03:25 03:25 03:25 RBC (4.10-5.20) 10*6/uL Hgb (12.0-15.0) g/dL Hct (37.2-46.3) % MCH (27.0-32.0) pg MCHC (32.0-37.0) g/dL RDW (11.5-14.5) % Plt Count (140-440) 10*3/uL Potassium 2.8 L (3.5-5.1) mmol/L Chloride 113 H (98-107) mmol/L Carbon Dioxide 19 L (22-30) mmol/L Glucose 103 H (74-99) mg/dL POC Glucose (mg/dL) (70-110) mg/dL Calcium 6.3 L* (8.4-10.2) mg/dL Phosphorus 2.3 L (2.4-5.1) mg/dL Magnesium (1.6-2.3) mg/dL Iron 8 L (50-170) UG/DL % Saturation 3.21 L (12.00-45.00) Transferrin 178.0 L (204.0-354.0) mg/dL Vitamin D 25-Hydroxy 24.6 L (30.0-100.0) ng/mL 08/24/24 08/24/24 Range/Units 05:33 06:07 RBC (4.10-5.20) 10*6/uL Hgb (12.0-15.0) g/dL Hct (37.2-46.3) % MCH (27.0-32.0) pg MCHC (32.0-37.0) g/dL RDW (11.5-14.5) % Plt Count (140-440) 10*3/uL Potassium (3.5-5.1) mmol/L Chloride (98-107) mmol/L Carbon Dioxide (22-30) mmol/L Glucose (74-99) mg/dL POC Glucose (mg/dL) 193 H (70-110) mg/dL Calcium (8.4-10.2) mg/dL Phosphorus (2.4-5.1) mg/dL Magnesium 1.2 L (1.6-2.3) mg/dL Iron (50-170) UG/DL % Saturation (12.00-45.00) Transferrin (204.0-354.0) mg/dL Vitamin D 25-Hydroxy (30.0-100.0) ng/mL Microbiology - Last 24 Hours (Table) 08/21/24 13:59 Blood Culture Gram Stain - Preliminary Blood Blood Culture - Preliminary Escherichia coli Molecular ID 08/21/24 15:30 Urine Culture - Final Urine,Voided
[2024-08-24 12:08] LABS: Glucose,Whole Blood 287 mg/dL (70-110)
--- NOTE | 2024-08-24 12:23 | XR ---
EXAMINATION TYPE: XR chest 1V portable DATE OF EXAM: 08/24/2024 12:17 PM COMPARISON: 08/21/2024 CLINICAL INDICATION: Female, 79 years old with history of SOB, TECHNIQUE: XR chest 1V portable views of the chest are obtained. FINDINGS: Demonstrated are scattered senescent parenchymal change. Patchy infiltrate right lower lobe persists. Correlate for pneumonia. Improved aeration left lower lo be. The heart is stable. Hilar and mediastinal structures are within normal limits. Degenerative changes are seen of the dorsal spine. IMPRESSION: 1. Patchy infiltrate right lower lobe persists. Correlate for pneumonia. Improved aeration left lowe r lobe. [facility], , 08/24/2024 12:21 PM
[2024-08-24] MEDS: SODIUM FERRIC GLUCONAT-SUCROSE 125 MG in SODIUM CHLORIDE 0.9% 100 ML IVPB SCH (12:48)
[2024-08-24 17:02] LABS: Glucose,Whole Blood 194 mg/dL (70-110)
[2024-08-24 19:58] LABS: Calcium 8.7 mg/dL (8.7-10.3); Chloride 98 mmol/L (96-109); Glucose 284 mg/dL (70-110); Potassium 4.8 mmol/L (3.5-5.5); Sodium 131 mmol/L (135-145)
[2024-08-24 21:29] LABS: Glucose,Whole Blood 151 mg/dL (70-110)
[2024-08-25 04:06] LABS: HGB 8.9 g/dL (12.0-15.0); MCH 24.8 pg (27.0-32.0); MCHC 30.7 g/dL (32.0-37.0); MCV 80.8 fL (80.0-97.0); Mean Platelet Volume 10.8 fL (9.5-12.2); Platelet Count 168 10*3/uL (140-440); RBC 3.59 10*6/uL (4.10-5.20); RDW 17.1 % (11.5-14.5)
[2024-08-25 04:23] LABS: African American GFR (CKD) >90 (>60 ml/min/1.73 sqM); Anion Gap 9 mmol/L; Blood Urea Nitrogen 16 mg/dL (7-17); Calcium 9.2 mg/dL (8.4-10.2); Carbon Dioxide 25 mmol/L (22-30); Chloride 98 mmol/L (98-107); Glucose 143 mg/dL (74-99); Magnesium 1.5 mg/dL (1.6-2.3); Non-African American GFR(CKD) 78 (>60 ml/min/1.73 sqM); Potassium 4.2 mmol/L (3.5-5.1); Sodium 132 mmol/L (137-145)
[2024-08-25 06:19] LABS: Glucose,Whole Blood 171 mg/dL (70-110)
[2024-08-25] MEDS: MAGNESIUM SULFATE-D5W PMX 1 GM in DEXTROSE/WATER 1 100ML.BAG IVPB SCH (10:53)
[2024-08-25 11:04] LABS: Glucose,Whole Blood 289 mg/dL (70-110)
--- NOTE | 2024-08-25 11:23 | CDI ---
Documentation Clarification Form Date: 08/25/2024 10:50:23 AM From: Ginger Liu RN CCDS Phone: [phone] Admit Date: 08/21/2024 03:15:00 PM Patient Name: Brodie Morocho Visit Number: [id number] Discharge Date: ATTENTION: The Clinical Documentation Specialists (CDI) and [facility] Coding Staff appreciate your assistance in clarifying documentation. Please respond to the clarification below the line at the bottom and electronically sign. The CDI & [facility] Coding staff will review the response and follow-up if needed. Please note: Queries are made part of the Legal Health Record. If you have any questions, please contact the author of this message via ITS. Doctor: Aniket Grullon The patient has Sepsis without septic shock documented 08/22, Medicine note. Based on this information and the findings below, is there an additional diagnosis that is clinically appropriate for this patient? History/Risk Factors: 79 year old female presents to the ED for altered mental status and increasing weakness. Medical History: HTN and DM2. Clinical Indicators: WBC, 08/21: 17.64 Plasma Lactic acid, 08/21: 1.0 UA, 08/21: Light yellow, cloudy, Protein 1+, Glucose 4+ , Nitrate positive, Leukocyte Esterase Large, WBC >182, Urine Bacteria occasional, Hyaline casts 6, Mucus rare. Urine culture, 08/21: 50, 000 to 100,000 CFU/mL Apparent skin and/or genital tre Blood cultures, 08/21: Escherichia coli Molecular ID Vitals signs, 08/21: B/P 139/55, HR 100, Temp 101 F Oral, RR 17, SpO2 95% ra Treatment: Antibiotics:08/21 Vancomycin IVPB x 1, 08/21 Cefepime IVPB x 1; 08/21 08/23 Azithromycin IVPB Daily x 3 bags, 08/22 Ceftriaxone IVPB Q24H IV Bolus: 08/21 Lactated Bexoauz2P IV x 2 bags, Is there an additional diagnosis that is clinically appropriate for this patient? [ x ] Sepsis, Ecoli bacteremia from UTI ruled in [ ] Sepsis ruled out [ ] Other, please specify [ ] Unable to determine SIRS Criteria: 2 or more of the following may indicate SIRS Temperature < 96.8F (36C) or > 101.0F (38.3C) Heart Rate > 90 bpm Respiratory Rate > 20 breaths/min or PaCO2 < 32 mmHg White Blood Cell Count > 12,000 or < 4,000 cells/mm3 or > 10% bands (Template Last Reviewed: March 2022) [facility]
--- NOTE | 2024-08-25 13:19 | P.PN ---
Subjective Progress Note Date: 08/25/24 Patient was seen and examined. Fatigue improving. No specific complaints. CBC and BMP significant for RBC 3.59, Hg 8.9, Hct 29, Na 132, glu 143. Mag 1.5. BP 126/66, HR 71, Tmax 99.7 F, RR 18, 95% on RA. General: no distress, appears at stated age Derm: warm, dry Head: atraumatic, normocephalic, symmetric Mouth: no lip lesion, mucus membranes moist Cardiovascular: S1 S2 reg. No murmur. Lungs: Decreased BS bilaterally, no accessory muscle use Ext: no gross muscle atrophy, no edema, no contractures. Neuro: No focal neurologic deficits. Psych: Alert and oriented. Based on my assessment of this patient, this patient meets a high complexity level of care. Acute metabolic encephalopathy due to E. coli bacteremia from UTI: Rocephin 2g IV QD. Tylenol 650 mg PO Q6H PRN fever. Transition to Augmentin on discharge when afebrile for 24H. Hypomagnesemia: 2g Mag sulfate x 1 today. DM with hyperglycemia: Hold home Jardiance, metformin, sitagliptin. Continue with SSI and Accu-Cheks ACHS along with hypoglycemia precautions. Microcytic anemia: Iron deficiency anemia. Continue Ferrilict 125 mg IV daily. Transfuse if Hg< 7. Recommend outpatient C-scope. Hypothyroidism: Continue Synthroid 100 mcg PO QD. Hyperlipidemia: Pravastatin 40 mg PO QD. Hypertension: Start Amlodipine 10 mg PO QD. Depression: Sertraline 50 mg PO QD. Dementia: Aricept 10 mg PO QHS. RA: Prednisone 5 mg PO QD. Resolved: HypoK, HypoCa Monitor fever profile for an additional 24H. Plans for discharge home once afebrile for 24H. CODE STATUS: FULL CODE DVT Prophylaxis: Heparin SQ GI Prophylaxis: Designated medical POA if patient is not able to make medical decisions for themselves: Son I have reviewed the following [employer] retailer sales consultant notes: I have reviewed the results of the following tests: CBC, BMP. Mag. I have ordered the following tests: Iron studies. CBC, Mag and BMP in the AM. I have discussed the care of this patient with the following independent historian: VANESA. I have independently interpreted the following test below: I have discussed the management of this patient with the following physician: Objective - Vital Signs Vital signs: Vital Signs Temp 98.0 F 08/25/24 08:00 Pulse 92 08/25/24 09:39 Resp 18 08/25/24 08:15 BP 126/66 08/25/24 08:00 Pulse Ox 95 08/25/24 08:00 FiO2 Intake & Output 08/24/24 08/25/24 08/25/24 18:59 06:59 18:59 Other: Voiding Method Toilet Toilet Toilet Diaper # Voids 6 3 # Bowel Movements 1 1 - Labs CBC & Chem 7: 08/25/24 03:27 08/25/24 03:27 Labs: Abnormal Lab Results - Last 24 Hours (Table) 08/24/24 08/24/24 08/24/24 Range/Units 12:07 14:35 17:01 RBC (4.10-5.20) 10*6/uL Hgb (12.0-15.0) g/dL Hct (37.2-46.3) % MCH (27.0-32.0) pg MCHC (32.0-37.0) g/dL RDW (11.5-14.5) % Sodium 131 L (135-145) mmol/L Carbon Dioxide 21.0 L (21.6-31.8) mmol/L Est GFR (CKD-EPI) 58 L (>=60) Glucose 284 H (70-110) mg/dL POC Glucose (mg/dL) 287 H 194 H (70-110) mg/dL Magnesium (1.6-2.3) mg/dL 08/24/24 08/25/24 08/25/24 Range/Units 21:27 03:27 03:27 RBC 3.59 L (4.10-5.20) 10*6/uL Hgb 8.9 L (12.0-15.0) g/dL Hct 29.0 L (37.2-46.3) % MCH 24.8 L (27.0-32.0) pg MCHC 30.7 L (32.0-37.0) g/dL RDW 17.1 H (11.5-14.5) % Sodium 132 L (135-145) mmol/L Carbon Dioxide (21.6-31.8) mmol/L Est GFR (CKD-EPI) (>=60) Glucose 143 H (70-110) mg/dL POC Glucose (mg/dL) 151 H (70-110) mg/dL Magnesium 1.5 L (1.6-2.3) mg/dL 08/25/24 08/25/24 Range/Units 06:18 11:01 RBC (4.10-5.20) 10*6/uL Hgb (12.0-15.0) g/dL Hct (37.2-46.3) % MCH (27.0-32.0) pg MCHC (32.0-37.0) g/dL RDW (11.5-14.5) % Sodium (135-145) mmol/L Carbon Dioxide (21.6-31.8) mmol/L Est GFR (CKD-EPI) (>=60) Glucose (70-110) mg/dL POC Glucose (mg/dL) 171 H 289 H (70-110) mg/dL Magnesium (1.6-2.3) mg/dL Microbiology - Last 24 Hours (Table) 08/21/24 13:59 Blood Culture Gram Stain - Preliminary Blood Blood Culture - Preliminary Escherichia coli Molecular ID
[2024-08-25 17:03] LABS: Glucose,Whole Blood 257 mg/dL (70-110)
[2024-08-25 20:34] LABS: Glucose,Whole Blood 175 mg/dL (70-110)
[2024-08-26 02:29] VITALS: TEMP 98
[2024-08-26 04:36] LABS: HCT 30.2 % (37.2-46.3); HGB 10.1 g/dL (12.0-15.0); MCH 26.7 pg (27.0-32.0); MCHC 33.4 g/dL (32.0-37.0); MCV 79.9 fL (80.0-97.0); Platelet Count 211 10*3/uL (140-440); RBC 3.78 10*6/uL (4.10-5.20); WBC 8.49 10*3/uL (4.50-10.00)
[2024-08-26 06:21] LABS: Glucose,Whole Blood 195 mg/dL (70-110)
[2024-08-26 08:52] VITALS: BP 139/69; RESP 19
[2024-08-26 09:11] VITALS: PULSE 94
[2024-08-26 11:38] LABS: Glucose,Whole Blood 282 mg/dL (70-110)
--- NOTE | 2024-08-26 13:02 | P.DS ---
Providers Date of admission: 08/21/24 15:15 Expected date of discharge: 08/26/24 Attending physician: Nikko Sadler Primary care physician: Evy Jones MD Hospital Course: 79 year old F with PMH of COPD, CVA, RA, HLD, Depression, DM presented to the ED on 08/21 for weakness and altered mental status. In the ED she underwent extensive evaluation. T101F, BP 139/55, HR 100, RR 17, 95% on RA. BP 126/66, HR 71, Tmax 99.7 F, RR 18, 95% on RA. Labs significant for WBC 17.64, RBC 4, Hg 10.2, Hct 31.9, MCV 79.8, Na 132, bicarb 19, BUN 55, Cr 1.69, glu 199, Lactic acid 1, Mag 1.6, Ammonia < 9, UA pos nitrite and large LE. COVID, RSV, Flu neg. EKG showed sinus tachycardia, nonspecific ST and T wave abnormalities, QTc 368, no acute ischemia. CT head showed no acute intracranial process remote left frontal lobe injury. Chest x-ray showed lower lobe opacities bilaterally. Patient was started on Rocephin and Azithromycin and admitted for further workup and management. BCx grew E. coli sensitive to Rocephin. TSH was 0.192, FT4 144. B12 496. Mentation improved, leukocytosis and fever resolved. Iron studies showed Fe 8, % sat 3.21, ferritin 178. She was started on IV iron x 3 days. Evaluated by PT and OT recommending discharge home. 08/26 Patient was seen and examined. No complaints. Doing well. Looking forward to going home. Afebrile over the past 24H. CBC shows RBC 3.78, Hg 10.1, Hct 30.2, MCV 79.9. Discharge Plan: Advised and recommended colonoscopy and other age related cancer screenings given her iron def. anemia. Continue Augmentin for 5 days to complete a total of 10 days antibiotics. Follow up with PCP within 1-2 days of discharge. General: no distress, appears at stated age Derm: warm, dry Head: atraumatic, normocephalic, symmetric Mouth: no lip lesion, mucus membranes moist Cardiovascular: S1 S2 reg. No murmur. Lungs: Decreased BS bilaterally, no accessory muscle use Ext: no gross muscle atrophy, no edema, no contractures. Neuro: No focal neurologic deficits. Psych: Alert and oriented. Discharge Diagnosis: Acute metabolic encephalopathy due to E. coli bacteremia from UTI Hypomagnesemia DM with hyperglycemia Microcytic anemia Hypothyroidism Hyperlipidemia Hypertension Depression Dementia RA Resolved: HypoK, HypoCa This complex discharge took 35 minutes to complete. Patient Condition at Discharge: Stable Plan - Discharge Summary Discharge Rx Participant: No New Discharge Prescriptions: New amLODIPine [Norvasc] 10 mg PO DAILY #30 tab Amoxic-Pot Clav 875-125Mg [Augmentin 875-125] 1 tab PO Q12HR 5 Days #10 tab Ferrous Sulfate [Feosol] 325 mg PO DAILY #30 tab Acetaminophen Tab [Tylenol] 650 mg PO Q6HR PRN tab PRN Reason: Mild Pain Or Fever > 100.5 Cholecalciferol [Vitamin D3 (25 Mcg = 1000 Iu)] 25 mcg PO DAILY #30 tab Continue sitaGLIPtin [Januvia] 100 mg PO DAILY Sertraline [Zoloft] 50 mg PO DAILY Empagliflozin [Jardiance] 10 mg PO DAILY Donepezil [Aricept] 10 mg PO HS Abatacept [Orencia Clickject] 125 mg SQ GILMORE predniSONE 5 mg PO DAILY metFORMIN HCL ER [Glucophage XR] 500 mg PO DAILY Pravastatin Sodium [Pravachol] 40 mg PO HS Omeprazole 20 mg PO BID Levothyroxine Sodium [Synthroid] 100 mcg PO DAILY Lacosamide 100 mg PO BID Enalapril [Vasotec] 2.5 mg PO DAILY Discharge Medication List Abatacept [Orencia Clickject] 125 mg SQ GILMORE 08/21/24 [History] Donepezil [Aricept] 10 mg PO HS 08/21/24 [History] Empagliflozin [Jardiance] 10 mg PO DAILY 08/21/24 [History] Enalapril [Vasotec] 2.5 mg PO DAILY 08/21/24 [History] Lacosamide 100 mg PO BID 08/21/24 [History] Levothyroxine Sodium [Synthroid] 100 mcg PO DAILY 08/21/24 [History] Omeprazole 20 mg PO BID 08/21/24 [History] Pravastatin Sodium [Pravachol] 40 mg PO HS 08/21/24 [History] Sertraline [Zoloft] 50 mg PO DAILY 08/21/24 [History] metFORMIN HCL ER [Glucophage XR] 500 mg PO DAILY 08/21/24 [History] predniSONE 5 mg PO DAILY 08/21/24 [History] sitaGLIPtin [Januvia] 100 mg PO DAILY 08/21/24 [History] Acetaminophen Tab [Tylenol] 650 mg PO Q6HR PRN tab 08/26/24 [Rx] Amoxic-Pot Clav 875-125Mg [Augmentin 875-125] 1 tab PO Q12HR 5 Days #10 tab 08/26/24 [Rx] Cholecalciferol [Vitamin D3 (25 Mcg = 1000 Iu)] 25 mcg PO DAILY #30 tab 08/26/24 [Rx] Ferrous Sulfate [Feosol] 325 mg PO DAILY #30 tab 08/26/24 [Rx] amLODIPine [Norvasc] 10 mg PO DAILY #30 tab 08/26/24 [Rx] Follow up Appointment(s)/Referral(s): None,Stated [REFERRING] - 1-2 days Activity/Diet/Wound Care/Special Instructions: Recommend Colonoscopy and other routine cancer screening due to anemia. Please see PCP for referral if agreeable. Discharge Disposition: HOME SELF-CARE
== END 2024-08-26 16:38 | disposition home or self-care (01) | DRG 871 ==
LOC: EC 12:48 → 4SSUR 15:15
PROVIDERS: ADMIT Student in an Organized Health Care Education/Training Program; ATTEND Student in an Organized Health Care Education/Training Program
DX: A41.51 Sepsis due to Escherichia coli [E. coli] (principal); G93.41 Metabolic encephalopathy; Z66 Do not resuscitate; E83.51 Hypocalcemia; N17.9 Acute kidney failure, unspecified; E11.65 Type 2 diabetes mellitus with hyperglycemia; D50.9 Iron deficiency anemia, unspecified; F03.93 Unspecified dementia, unspecified severity, with mood disturbance; E03.9 Hypothyroidism, unspecified; I10 Essential (primary) hypertension; F32.A Depression, unspecified; E87.1 Hypo-osmolality and hyponatremia; N39.0 Urinary tract infection, site not specified; R47.01 Aphasia; Z79.890 Hormone replacement therapy; E78.5 Hyperlipidemia, unspecified; E83.42 Hypomagnesemia; E87.6 Hypokalemia; Z79.84 Long term (current) use of oral hypoglycemic drugs; Z79.899 Other long term (current) drug therapy; Z86.73 Personal history of transient ischemic attack (TIA), and cerebral infarction without residual deficits
CPT/HCPCS: 36415; 70450; 71045; 71046; 76770; 80048; 80053; 81001; 82140; 82306; 82310; 82330; 82607; 82728; 83540; 83550; 83605; 83735; 83970; 84100; 84439; 84443; 85025; 85027; 85610; 85730; 87040; 87077; 87086; 87186; 87449; 87636; 93005; 94640; 94760; 96361; 96365; 96366; 96367; 96368; 96375; 99291

== ENCOUNTER → 2024-09-17 | Outpatient (CLI) | payer MEDICARE, OTHER ==
--- NOTE | 2024-09-17 11:08 | CT ---
EXAMINATION TYPE: CT chest wo con DATE OF EXAM: 09/17/2024 10:52 AM COMPARISON: None CLINICAL INDICATION: Female, 79 years old with history of M06.9 Rheumatoid arthritis, R09.89 Z79.620; PHH, hx lung disease TECHNIQUE: Multiple axial images were obtained through the chest. Sagittal and coronal reformats were created for review. MIP was performed on a separate workstation. Contrast used: mL of (None if empty) Oral contrast used: (None if empty) CT DLP: 381 mGycm, Automated exposure control for dose reduction was used. FINDINGS: LUNGS/ PLEURA: No focal consolidation, pneumothorax or pleural effusion. Azygous fissure noted. No ev idence for honeycombing. Mild interstitial prominence of the lungs predominantly in the lung bases an d along the periphery. AIRWAY: Patent and unremarkable. HEART: Size within normal limits. Severe coronary artery calcifications present. Thickening and calc ification of aortic valve present. MEDIASTINUM: No gross evidence of adenopathy. VASCULATURE: No aortic aneurysm. MUSCULOSKELETAL: No acute osseous abnormalities SOFT TISSUES/LYMPH NODES: Unremarkable. LOWER NECK: No significant findings. UPPER ABDOMEN: The gallbladder surgically absent. IMPRESSION: 1. No evidence for acute process. 2. No clinically significant pulmonary nodules. 3. Interstitial prominence predominantly in lung bases and along the periphery is could be compatibl e with patient's history of rheumatoid arthritis. 4. Moderate to severe coronary and aortic valve consultations. 5. Severe coronary artery calcifications. Follow up recommendations for incidental pulmonary nodules, if there are any, are per [employer] or [employer]. [email or web address].org/articles/igiylfqxrw-mpwebns-[email or web address]?lang=us [facility], , 09/17/2024 11:06 AM
== END | disposition home or self-care (01) ==
LOC: RADCTMAIN 10:29
PROVIDERS: ATTEND Internal Medicine Rheumatology
DX: R09.89 Other specified symptoms and signs involving the circulatory and respiratory systems (principal); M06.09 Rheumatoid arthritis without rheumatoid factor, multiple sites; I25.10 Atherosclerotic heart disease of native coronary artery without angina pectoris; R91.8 Other nonspecific abnormal finding of lung field; Z79.620 Long term (current) use of immunosuppressive biologic
CPT/HCPCS: 71250